=== PATIENT | female | born 1975 | race Caucasian/White ===

== ENCOUNTER 2022-01-25 07:53 | Outpatient (CLI) | payer OTHER, SELFPAY ==
--- NOTE | 2022-01-25 08:15 | CRLHL7_ITS ---
For Patients: As a result of the Century Cures Act, medical imaging exams and procedure reports are released immediately into your electronic medical record. You may view this report before your referring provider. If you have questions, please contact your health care provider. BILATERAL DIGITAL SCREENING MAMMOGRAM WITH COMPUTER-AIDED DETECTION AND TOMOSYNTHESIS CLINICAL HISTORY: Routine screening exam. COMPARISON: 01/04/2021, 06/10/2018, 05/31/2018 05/18/2017. TECHNIQUE: Digital mammogram in CC and MLO projections including computer-aided detection (CAD) and tomosynthesis. BREAST COMPOSITION: The breasts are heterogeneously dense, which may obscure small masses FINDINGS: RIGHT Breast: No suspicious findings. LEFT Breast: Nodular density retroareolar plane 4 cm from the nipple, probable cyst. IMPRESSION: LEFT breast asymmetry/mass. RECOMMENDATIONS: LEFT breast ultrasound recommended. The [facility] will contact the patient for follow-up. A lay language report of this examination will be provided to the patient. BI-RADS Category 0: Incomplete: Need Additional Imaging Evaluation and/or Prior Mammograms for Comparison. Dictated by Watson Ingram MD @ 01/25/2022 12:54:30 PM/isreal YULI/Dictated by: Watson Ingram MD @ 01/25/2022 1:04:00 PM (Electronically Signed)
== END 2022-01-25 07:54 | disposition home or self-care (01) ==
PROVIDERS: PCP Family Medicine; Visit Provider Family Medicine
DX: Z12.31 Encounter for screening mammogram for malignant neoplasm of breast (principal); N63.20 Unspecified lump in the left breast, unspecified quadrant
CPT/HCPCS: 77063; 77067

== ENCOUNTER 2022-01-27 09:02 | Outpatient (CLI) | payer OTHER, SELFPAY ==
--- NOTE | 2022-01-27 09:15 | CRLHL7_ITS ---
For Patients: As a result of the Century Cures Act, medical imaging exams and procedure reports are released immediately into your electronic medical record. You may view this report before your referring provider. If you have questions, please contact your health care provider. LEFT BREAST ULTRASOUND, 01/27/2022 CLINICAL HISTORY: LEFT breast nodular density. COMPARISON: 01/25/2022. TECHNIQUE: Real-time ultrasound imaging of LEFT breast with imaging documentation. FINDINGS: Targeted sonogram LEFT breast 12 o`clock 2 cm from the nipple performed. In this location there is a simple anechoic cyst at posterior depth measuring 10 x 5 x 11 millimeters. No abnormal vascularity. IMPRESSION: Simple cyst LEFT breast 12 o`clock 2 cm from the nipple measuring 1.1 cm. No evidence of malignancy. RECOMMENDATIONS: Annual BILATERAL screening mammography. Results and recommendations were discussed with the patient at the time of the exam. BI-RADS Category 2: Benign A lay language report of this examination will be provided to the patient. Dictated by Watson Ingram MD @ 01/27/2022 9:57:44 AM j/Dictated by: Watson Ingram MD @ 01/27/2022 9:57:00 AM (Electronically Signed)
== END 2022-01-27 09:03 | disposition home or self-care (01) ==
LOC: US 09:02
PROVIDERS: PCP Family Medicine; Visit Provider Family Medicine
DX: N63.20 Unspecified lump in the left breast, unspecified quadrant (principal); R92.8 Other abnormal and inconclusive findings on diagnostic imaging of breast
CPT/HCPCS: 76642

== ENCOUNTER 2022-11-29 10:47 | Outpatient (CLI) | payer OTHER, SELFPAY | END 2022-11-29 10:48 | disposition home or self-care (01) | PROVIDERS: PCP Family Medicine; Visit Provider Family Medicine | DX: Z00.00 Encounter for general adult medical examination without abnormal findings (principal); E78.5 Hyperlipidemia, unspecified; E66.01 Morbid (severe) obesity due to excess calories; Z13.1 Encounter for screening for diabetes mellitus | CPT/HCPCS: 80048; 80061; 84439 ==

== ENCOUNTER 2023-02-26 09:25 | Outpatient (CLI) | payer OTHER, SELFPAY ==
--- NOTE | 2023-02-26 09:45 | CRLHL7_ITS ---
For Patients: As a result of the Century Cures Act, medical imaging exams and procedure reports are released immediately into your electronic medical record. You may view this report before your referring provider. If you have questions, please contact your health care provider. BILATERAL SCREENING MAMMOGRAM WITH COMPUTER-AIDED DETECTION AND TOMOSYNTHESIS TECHNIQUE: CC and MLO views were obtained. These mammographic images have been obtained using full-field digital technique. These mammographic images were interpreted with the benefit of computer-aided detection. Breast Tomosynthesis was used in this interpretation. COMPARISON FILM: 01/25/22, 01/04/21, 06/10/18 FINDINGS: The breasts are heterogeneously dense, which may obscure small masses IMPRESSION: There is no radiographic evidence for malignancy. ASSESSMENT: BI-RADS Category 2: Benign RECOMMENDATION: Routine screening mammogram in 1 year. A lay language report of this examination will be provided to the patient. Watson Ingram M.D. Diagnostic Radiologist [email or web address] EFRAIN/femi Transcribed: 4:55 p.comfort kahn/Dictated by: Watson Ingram MD @ 02/28/2023 11:39:00 AM (Electronically Signed)
== END 2023-02-26 09:26 | disposition home or self-care (01) ==
LOC: MAMMO 09:25
PROVIDERS: PCP Family Medicine; Visit Provider Family Medicine
DX: Z12.31 Encounter for screening mammogram for malignant neoplasm of breast (principal); R92.2 Inconclusive mammogram
CPT/HCPCS: 77063; 77067

== ENCOUNTER 2024-01-21 08:15 | Outpatient (CLI) | payer OTHER, SELFPAY | END 2024-01-21 08:16 | disposition home or self-care (01) | PROVIDERS: PCP Family Medicine; Visit Provider Family Medicine | DX: E78.2 Mixed hyperlipidemia (principal) | CPT/HCPCS: 80048; 80061 ==

== ENCOUNTER 2024-03-18 07:56 | Outpatient (CLI) | payer OTHER, SELFPAY ==
--- NOTE | 2024-03-18 08:15 | CRLHL7_ITS ---
For Patients: As a result of the Century Cures Act, medical imaging exams and procedure reports are released immediately into your electronic medical record. You may view this report before your referring provider. If you have questions, please contact your health care provider. BILATERAL SCREENING MAMMOGRAM WITH COMPUTER-AIDED DETECTION AND TOMOSYNTHESIS TECHNIQUE: CC and MLO views were obtained. These mammographic images have been obtained using full-field digital technique. These mammographic images were interpreted with the benefit of computer-aided detection. Breast Tomosynthesis was used in this interpretation. COMPARISON FILM: 02/26/23, 01/25/22, 01/04/21. FINDINGS: The breasts are heterogeneously dense, which may obscure small masses. IMPRESSION: There is no radiographic evidence for malignancy. ASSESSMENT: BI-RADS Category 1: Negative RECOMMENDATION: Routine screening mammogram in 1 year. A lay language report of this examination will be provided to the patient. Watson Ingram M.D. Diagnostic Radiologist [email or web address] EFRAIN/femi Transcribed: 4:25 p.comfort kahn/Dictated by: Watson Ingram MD @ 03/18/2024 9:31:00 AM (Electronically Signed)
== END 2024-03-18 07:57 | disposition home or self-care (01) ==
LOC: MAMMO 07:56
PROVIDERS: PCP Family Medicine; Visit Provider Family Medicine
DX: Z12.31 Encounter for screening mammogram for malignant neoplasm of breast (principal); R92.333 Mammographic heterogeneous density, bilateral breasts
CPT/HCPCS: 77063; 77067

== ENCOUNTER 2024-04-18 07:00 | Outpatient (CLI) | payer OTHER, SELFPAY | END 2024-04-18 07:01 | disposition home or self-care (01) | LOC: MRI 07:01 | PROVIDERS: PCP Family Medicine; Visit Provider Family Medicine | DX: M54.10 Radiculopathy, site unspecified (principal); M51.26 Other intervertebral disc displacement, lumbar region; M51.27 Other intervertebral disc displacement, lumbosacral region | CPT/HCPCS: 72148 ==